=== PATIENT | male | born 1955 | race Caucasian/White ===

== ENCOUNTER → 2018-08-09 | Outpatient (CLI) | payer OTHER ==
--- NOTE | 2018-08-09 11:30 | RAD ---
EXAM: Lumbar spine, 2 views; right knee, 2 views. HISTORY: Pain. COMPARISON: None. FINDINGS: Lumbar spine: 2 views lumbar spine are obtained. There is mild lumbar dextrocurvature. There is a transitional lumbosacral segment, considered a partially lumbarized S1 segment with rudimentary S1-S2 disc for this dictation. Based on this numbering system, there is grade 1 anterolisthesis of L5 on S1. There is mild endplate remodeling at multiple levels. There is facet arthropathy predominantly at the lower lumbar levels. Right knee: 2 views right knee are obtained. There is no fracture, dislocation or subluxation. There is no joint effusion. IMPRESSION: 1. Transitional lumbosacral segment, considered a partially lumbarized S1 segment for this dictation. This is a normal variant. 2. Grade 1 anterolisthesis of L5 on S1. 3. Multilevel degenerative change throughout the lumbar spine, primarily the lumbosacral junction. 4. No acute osseous finding. Electronically signed by: Lilibeth Shelley MD (08/09/2018 11:27 AM) [id number]
== END | disposition home or self-care (01) ==
LOC: RAD 10:12
DX: M47.817 Spondylosis without myelopathy or radiculopathy, lumbosacral region (principal); M43.17 Spondylolisthesis, lumbosacral region; M43.8X6 Other specified deforming dorsopathies, lumbar region; M12.88 Other specific arthropathies, not elsewhere classified, other specified site; M25.561 Pain in right knee
CPT/HCPCS: 72100; 73560

== ENCOUNTER → 2020-04-05 | Outpatient (CLI) | payer OTHER ==
--- NOTE | 2020-04-05 17:38 | KCIC ---
PROCEDURE: SHOULDER BILAT 2+V STUDY DATE: 04/05/2020 CLINICAL INDICATION / HISTORY: Reason: Shoulder pain, pain w/certain arm movements. / Spl. Instructions: / History: . TECHNIQUE: AP internal and external rotation views with a Y- view were obtained of both shoulders. COMPARISON: None FINDINGS: Right shoulder shows no fracture, dislocation or bone destruction. The bones are demineralized. There are moderate degenerative changes at the right AC joint. No calcifications are seen in relation to the rotator cuff insertion. Left shoulder shows bulky bony hypertrophy along the inferior aspect of the distal left clavicle, likely reflecting combination of acromioclavicular degenerative change at heterotopic ossification, possibly from prior AC separation joint injury with separation. Bones are demineralized. Soft tissues reveal no additional abnormal findings. IMPRESSION: 1. Moderate AC joint degenerative change in the right shoulder with no fracture or dislocation.. 2. Left acromioclavicular joint degenerative change and bulky bone formation of the inferior aspect of the distal left clavicle, possibly heterotopic ossification from prior injury. Electronically signed by: Ramos Marshall MD (04/05/2020 5:35 PM) [id number]
== END ==
LOC: KCIC 13:00
PROVIDERS: ATTEND Family Medicine
DX: M19.011 Primary osteoarthritis, right shoulder (principal); Z68.25 Body mass index [BMI] 25.0-25.9, adult
CPT/HCPCS: 73030